=== PATIENT | female | born 1955 | race African-American/Black ===

== ENCOUNTER 2019-08-09 11:31 | Emergency (ER) | payer OTHER ==
[~2019-08-09] VITALS: Ht 170.2 cm; Wt 73.5 kg
[2019-08-09] MEDS ORDERED: MICROZIDE12.5 MG PO (12:07)
[2019-08-09] MEDS ORDERED: OXTELLAR XR300 MG PO (12:08)
[2019-08-09] MEDS ORDERED: METFORMIN HCL500 MG PO (12:08)
[2019-08-09] MEDS ORDERED: ASPIR 8181 MG PO (12:09)
[2019-08-09] MEDS ORDERED: NORVASC10 MG PO (12:09)
== END 2019-08-09 17:47 | disposition home or self-care (01) ==
LOC: ER 11:31
DX: R42 Dizziness and giddiness (principal)

== ENCOUNTER 2021-12-14 18:54 | Emergency (ER) | payer OTHER ==
[~2021-12-14] VITALS: Ht 165.1 cm; Wt 75.3 kg
[~2021-12-14 18:54] MED LIST: ASPIR 8181 MG PO; METFORMIN HCL500 MG PO; MICROZIDE12.5 MG PO; NORVASC10 MG PO; OXTELLAR XR300 MG PO
== END 2021-12-14 23:38 | disposition home or self-care (01) ==
LOC: ER 18:54
DX: R53.81 Other malaise (principal); Z20.822 Contact with and (suspected) exposure to COVID-19